=== PATIENT | male | born 1970 | race Caucasian/White ===

== ENCOUNTER → 2021-05-06 | Outpatient (CLI) | payer OTHER | LOC: RAD 09:07 | DX: R05.9 Cough, unspecified (principal); M54.2 Cervicalgia; M54.9 Dorsalgia, unspecified; M47.816 Spondylosis without myelopathy or radiculopathy, lumbar region; M47.812 Spondylosis without myelopathy or radiculopathy, cervical region; M47.814 Spondylosis without myelopathy or radiculopathy, thoracic region | CPT/HCPCS: 71046; 72040; 72072; 72100 ==